=== PATIENT | male | born 1955 ===

== ENCOUNTER 2022-09-19 17:09 | Outpatient (REF) | payer OTHER, SELFPAY ==
[2022-09-19 17:44] LABS: BUN 8 mg/dL (7-18); CREATININE 0.9 mg/dL (0.70-1.30); Estimated GFR 93.03 (mL/min/1.73m2)
== END 2022-09-19 17:10 | disposition home or self-care (01) ==
LOC: NCHCN 17:09
PROVIDERS: Visit Provider Family Medicine
DX: R59.0 Localized enlarged lymph nodes (principal)
CPT/HCPCS: 84520; 82565